=== PATIENT | female | born 1995 | race Caucasian/White ===

== ENCOUNTER 2018-10-14 05:29 | Inpatient (IN) ==
[2018-10-14] MEDS ORDERED: CeFAZolin Premix DUPLEX 2,000 MG/50 ML BAG IVPB ONE (05:43)
[2018-10-14] MEDS ORDERED: Metoclopramide 10 MG/2 ML VIAL IVP ONE (05:43)
[2018-10-14] MEDS ORDERED: Famotidine 20 MG/2 ML VIAL IVP ONE (05:43)
[2018-10-14] MEDS ORDERED: Ringers Solution, Lactated 1,000 ML IVC SCH ×3 (05:45→13:10)
[2018-10-14] MEDS ORDERED: Oxytocin 20 units/ LR 1000 mL 20 UNIT/1,000 ML BAG IVC SCH ×2 (05:45→13:10)
[2018-10-14 06:21] LABS: Basophils % 0.1 %; Eosinophils % 0.2 %; Hematocrit 36.6 % (35.3-44.9); Immature Granulocytes % 0.9 % (0-4); Lymphocytes # 1.7 K/mcL (0.6-4.6); Lymphocytes % 19.5 %; Mean Corpuscular HGB Conc 32.8 g/dL (31.6-35.5); Mean Corpuscular Hemoglobin 28.8 pg (28.0-33.3); Mean Platelet Volume 9.6 fL (9.4-12.4); Monocytes # 0.5 K/mcL (0.0-1.3); Monocytes % 5.2 %; Neutrophils # 6.4 K/mcL (1.6-8.9); Platelet Count 192 K/mcL (140-400); Red Blood Count 4.16 M/mcL (3.82-4.97); Red Cell Distribution Width 14.3 % (11.5-14.5); Segmented Neutrophils % 74.1 %
[2018-10-14 06:54] LABS: Amphetamine Screen,Urine Negative ng/mL (Cutoff=1000); Barbiturate Screen,Urine Negative ng/mL (Cutoff=200)
[2018-10-14 06:55] LABS: Benzodiazepines Screen,Urine Negative ng/mL (Cutoff=300); Cannabinoid Screen,Urine Negative ng/mL (Cutoff = 50); Cocaine Screen,Urine Negative ng/mL (Cutoff= 300); Opiate Screen,Urine Negative ng/mL (Cutoff=300); Phencyclidine Screen,Urine Negative ng/mL (Cutoff=25)
--- NOTE | 2018-10-14 07:08 | Anesthesia Evaluation PreOp ---
Date of Encounter: 10/14/18 Time of Encounter: 07:06 - Past History Planned Operation: csection Cardiac History: Denies any Significant Hx Pulmonary History: Denies Any Significant HX BEVERAGE DISTILLER History: Denies Any Significant HX Other Medical History: Denies Any Significant HX Anesthesia History: No Prior Anesthetic Complications, Past Anesthesia (previous csection (failure to progress) under GETA after failed epidural top up.) : Yes (, 39 plus 1) Alcohol Use: none Drug use: none Medications and Allergies Vit/FA 1 tab PO 07/21/15 [History] Tylenol 650 mg PRN 09/28/15 [History] Docusate [Colace] 100 mg PO BID #60 capsule 10/01/15 [Rx] Ibuprofen [Motrin] 600 mg PO Q6HR PRN #60 tablet 10/01/15 [Rx] OxyCODONE/APAP 5/325 [Percocet 5/325] 1 each PO Q4HR PRN #30 tablet 10/01/15 [Rx] Cyclobenzaprine [Flexeril] 10 mg PO TID #15 tablet 10/08/17 [Rx] Naproxen [Naprosyn] 500 mg PO BID PRN #20 tablet 10/08/17 [Rx] Allergy/AdvReac Type Severity Reaction Status Date / Time tb test AdvReac Dizziness Uncoded 06/19/18 14:59 - Meds/Allergy Pre-op Review Medications Reviewed: Yes Allergies Reviewed: Yes Beta Blockers on Current Med List: No Anesthesia Results - Labs 10/14/18 06:00 Anesthesia Exam O2 Sat Height 1.7 m Weight 107.955 kg Height: 67 Weight: 107 NPO (# of Hours): greater than 8 hours - HEENT Pupil (Motor): Pupils equal Mallampati: II Teeth: Normal Oral Opening: Greater than 3 - BEVERAGE DISTILLER LOC: Oriented BEVERAGE DISTILLER Motor: Normal RUE, Normal LUE, Normal RLE, Normal LLE, Normal Face BEVERAGE DISTILLER Sensory: Normal: RUE, LUE, RLE, LLE, Face - Cardiac Rhythm: Regular Murmur: None JVD: No Carotid Bruit: No - Pulmonary Breath Sounds: bilateral Clear Respiratory Effort: Symmetrical Anesthesia Assess/Plan ASA Score: 2 Level of consciousness: Cooperative Anesthetic Plan: General (Plan B), Spinal (plan A) Monitoring Plan: Standard Monitors Recovery Plan: PACU
--- NOTE | 2018-10-14 07:47 | OB/GYN History & Physical ---
Date of Encounter: 10/14/18 Time of Encounter: 07:45 Assessment and Plan (1) 39 weeks gestation of Current visit: Yes Status: Acute Pt at 39 weeks gestation, presents for repeat . Questions answered and consent obtained. Will proceed with . History of Present Illness Chief complaint: Here for repeat HPI: Ms. Rhodes is a 23 year old female female presents for repeat . has been uncomplicated. She reports + GFM, no vb or lof. Past Med Surg Social Fam HX - Past Medical History Source: patient, old records reviewed Medical history: no medical history Psychiatric history: no psych history - Past Surgical History Surgical History: other Additional surgical history: previous csection, LEEP - Social History Smoking Status: Never smoker Smokeless Tobacco Status: No Alcohol use: none Drug use: none - Family History Father Living Status: Still Living Hx Family Cardiac Disorders: No Hx Family Respiratory Disorders: No Hx Family Cancer: No Hx Family GI Disorders: No Hx Family Genitourinary Disorders: No Hx Family Endocrine Disorder: Yes (diabetes) Hx Family Musculoskeletal Disorders: No Hx Family Neuromuscular Disorders: No Hx Family Neurologic Disorders: No Hx Family HEENT Disorders: No Hx Family Autoimmune Disorders: No Hx Family Reproductive Disorders: No Hx Family Psychosocial Disorders: No Hx Family Medical Disorders: No Mother Adopted: No Family Member Ethnicity: Non- Living Status: Still Living Hx Family Cardiac Disorders: No Hx Family Respiratory Disorders: No Hx Family Cancer: No Hx Family GI Disorders: No Hx Family Genitourinary Disorders: No Hx Family Endocrine Disorder: No Hx Family Musculoskeletal Disorders: No Hx Family Neuromuscular Disorders: No Hx Family Neurologic Disorders: No Hx Family HEENT Disorders: No Hx Family Autoimmune Disorders: No Hx Family Reproductive Disorders: No Hx Family Psychosocial Disorders: No Hx Family Medical Disorders: No Obstetrical History - Pregnancies : 2 Medications and Allergies Vit/FA 1 tab PO 07/21/15 [History] Tylenol 650 mg PRN 09/28/15 [History] Docusate [Colace] 100 mg PO BID #60 capsule 10/01/15 [Rx] Ibuprofen [Motrin] 600 mg PO Q6HR PRN #60 tablet 10/01/15 [Rx] OxyCODONE/APAP 5/325 [Percocet 5/325] 1 each PO Q4HR PRN #30 tablet 10/01/15 [Rx] Cyclobenzaprine [Flexeril] 10 mg PO TID #15 tablet 10/08/17 [Rx] Naproxen [Naprosyn] 500 mg PO BID PRN #20 tablet 10/08/17 [Rx] Allergy/AdvReac Type Severity Reaction Status Date / Time tb test AdvReac Dizziness Uncoded 06/19/18 14:59 Exam - Constitutional Constitutional: well developed - HEENT HEENT: EOMI, PERRL - Neck Neck exam: full ROM - Lungs Respiratory exam: CTAB - Cardiovascular Cardiovascular exam: RRR - Abdomen Abdomen: Present: gravid - Extremities Extremities exam: full ROM Deep Tendon Reflex Grade: 2+ Normal Results Result Diagrams: 10/14/18 06:00 All other labs normal.
[2018-10-14] MEDS ORDERED: Bupivacaine/PF 0.75% in Dex 2 ML AMPUL INFILT ONE (08:39)
[2018-10-14] MEDS ORDERED: *HR* Morphine Sulfate/PF 10 MG/10 ML AMPUL ONE (08:52)
[2018-10-14] MEDS ORDERED: Ondansetron 4 MG/2 ML VIAL ONE ×2 (09:17→09:47)
[2018-10-14] MEDS ORDERED: *HR* Oxytocin 10 UNIT/ML VIAL IM ONE (09:17)
[2018-10-14] MEDS ORDERED: Dexamethasone 4 MG/ML VIAL ONE (09:17)
--- NOTE | 2018-10-14 09:39 | Anesthesia Procedures ---
Date of Encounter: 10/14/18 Time of Encounter: 09:08 Procedures: Anesthesia - Epidural/Spinal Patient ID/Chart reviewed: Yes Patient examined: Yes OB Eval: Gestational age: 39 OB Eval: : 2 OB Eval: Hx Para: 1 OB Eval: Contractions: Non-stressed pattern Supplemental Oxygen: None/Room Air Site Prep: Aseptic Technique, Sterile prep and drape Patient position: upright Local Anesthetic: Lidocaine 1% Amount of Local Anesthetic used: 5 Interspace Used: L4-L5 Blood: No CSF: Yes Paresthesia: No Spinal Needle Gauge: 25 Spinal Dose: Bupivicaine 0.75% 1.6ml morphine 250mcg Procedure: Intrathecal dose administered in upright position after 2 attempts unsuccessful at higher levels. L4-L5 successful attempt. Pt tolerated procedure well. Pt supine for procedure. Upon testing patient loss of sensory to t4. Vitals + FHT's: See anesthesia record. VSS and FHT stable throughout.
[2018-10-14] MEDS ORDERED: *HR* HYDROmorphone (PF) 1 MG/ML SYRINGE IVP PRN (09:46)
[2018-10-14] MEDS ORDERED: Acetaminophen IV 1,000 MG/100 ML INFUS..BTL IVPB ONE (09:46)
[2018-10-14] MEDS ORDERED: *HR* Meperidine 25 MG/ML SYRINGE IVP PRN (09:46)
[2018-10-14] MEDS ORDERED: *HR* OxyCODONE Immed Rel 5 MG TABLET PO PRN ×2 (09:46→13:10)
[2018-10-14] MEDS ORDERED: *HR* Promethazine 25 MG/ML VIAL IVP PRN (09:46)
[2018-10-14] MEDS ORDERED: Ondansetron 4 MG/2 ML VIAL IVP PRN (13:10)
[2018-10-14] MEDS ORDERED: Naloxone 0.4 MG/ML INJ IVP PRN (13:10)
[2018-10-14] MEDS ORDERED: Simethicone 80 MG TAB.CHEW PO PRN (13:10)
[2018-10-14] MEDS ORDERED: Metoclopramide 10 MG/2 ML VIAL IVP PRN (13:10)
[2018-10-14] MEDS ORDERED: Rho Immune Globulin 1,500 UNIT SYRINGE IM ONE (13:10)
[2018-10-14] MEDS ORDERED: Sennosides 8.6 MG TABLET PO PRN (13:10)
--- NOTE | 2018-10-14 15:10 | Anesthesia Evaluation Post Op ---
Date of Encounter: 10/14/18 Time of Encounter: 12:00 - Vital Signs Vital Signs: Vital Signs Respiratory Rate 16 10/14/18 13:00 Temperature 98.3 F 10/14/18 14:00 Pulse Rate 82 10/14/18 14:00 Respiratory Rate 16 10/14/18 14:00 Blood Pressure 117/70 10/14/18 14:00 O2 Sat by Pulse Oximetry 96 10/14/18 14:00 - Lungs Lungs: Clear Ascult./Percussion - Airway Airway: Non-obstructed - Cardiovascular Regular Rate - Mental Status Mental Status: Alert & Oriented, Answers Appropriately - Pain Pain Scale: 2 Pain Scale used: Numeric (1 - 10) - Nausea Vomiting Nausea Vomiting: Not Present - Hydration Hydration: NPO, Merida catheter - Discharge PostOp Status: Transfer Patient to floor
--- NOTE | 2018-10-14 18:42 | OB/GYN Procedure Note ---
Section - Date of procedure: 10/14/18 Preop diagnosis: desires repeat Post-op diagnosis: same Procedure: section, repeat low transverse Surgeon: Augustin Coyle Blood Loss: 500 Was there an assistant professor of life sciences present: Alexandrea Otr Owner Operator Truck Driver: Bala Moffett Anesthesia Type: Spinal Disposition: L&D Recovery Room Specimens: Placenta - Infant (s) A Infant Delivery Date: 10/14/18 Infant Delivery Time: 09:36 Presentation: vertex Gender: Female Viability: Viable Gram Weight: 3.87 kg at 1 minute: 8 at 5 minutes: 9 Specimens collected: cord blood Placenta: spontaneous Cord: 3 umbilical vessels - Narrative Narrative: Patient was taken operating room where spinal anesthesia was administered. She is prepped draped in usual sterile fashion bladder drained clear urine with Merida catheter. Scalpel was used to make Pfannenstiel skin incision this was sharply take down the rectus fascia. Fascial incision was extended incised the midline fascial incision was extended bilaterally plain was developed and rectus muscle rectus fascia superiorly and distally rectus muscles were run midline peritoneum was entered sharply. Bladder blade was placed and bladder flap was dropped lower uterine segment. Scalpel was used to make a low transverse uterine incision. This was extended bluntly bilaterally. Membranes were ruptured clear fluid and infant was delivered from vertex presentation. Cord was clamped and cut and was taken nurse personnel who were in attendance. Placenta was delivered manually without difficulty. Uterus was closed with 0 Vicryl running lock stitch. There was a [id number] stitches placed on left side obtain hemostasis. Again irrigation was performed hemostasis was ensured. Fascia was closed 0 Vicryl running manner. After closed the fascia again irrigation was performed hemostasis was assured. Skin edges reapproximated with 4-0 Vicryl. All sponge and counts are correct patient taken recovery in good condition.
[2018-10-14] MEDS: Ibuprofen 600 MG TABLET PO PRN (21:16)
[2018-10-15] MEDS: *HR* OxyCODONE/APAP 5/325 TABLET PO PRN ×2 (06:05→16:57)
[2018-10-15 06:52] LABS: Eosinophils % 0.2 %; Hematocrit 29.1 % (35.3-44.9); Immature Granulocytes % 0.5 % (0-4); Lymphocytes # 0.9 K/mcL (0.6-4.6); Mean Corpuscular HGB Conc 32.3 g/dL (31.6-35.5); Mean Corpuscular Hemoglobin 28.6 pg (28.0-33.3); Mean Corpuscular Volume 88.4 fL (83.0-100.0); Mean Platelet Volume 9.2 fL (9.4-12.4); Monocytes # 0.6 K/mcL (0.0-1.3); Platelet Count 153 K/mcL (140-400); Red Blood Count 3.29 M/mcL (3.82-4.97); Red Cell Distribution Width 14.4 % (11.5-14.5); Segmented Neutrophils % 84.3 %
[2018-10-15 07:02] LABS: Hemoglobin 9.4 g/dL (11.5-15.4)
[2018-10-15] MEDS: Ibuprofen 600 MG TABLET PO PRN ×2 (09:34→20:28)
[2018-10-15] MEDS: Prenatal Vit/FA 1 EACH TABLET PO SCH (09:35)
--- NOTE | 2018-10-15 10:38 | OB/GYN Progress Note ---
Date of Encounter: 10/15/18 Time of Encounter: 10:35 - Assessment and Plan (1) Delivered by section Current Visit: No Status: Acute Pt meeting POD1 milestones. Plan for discharge home POD#2. (2) Breast feeding status of mother Current Visit: Yes Status: Acute Subjective - Subjective Interval history: Pt reports some incisional pain with movement. No other complaints. She is tolerating a regular diet and passing flatus. Tired but otherwise good mood. Patient reports: appetite normal, voiding normally, pain well controlled, ambulating normally Objective - Vital Signs Latest vital signs: Vital Signs Temp Pulse Pulse Resp BP Pulse Ox 10/15/18 09:26 16 10/15/18 08:04 98.2 F 110 14 110/63 96 10/15/18 05:45 98.4 F 98 16 107/61 97 10/15/18 01:00 98.2 F 93 16 109/65 99 10/14/18 21:10 80 10/14/18 19:30 98.6 F 97 16 107/67 96 10/14/18 16:42 98.3 F 91 16 117/71 96 10/14/18 16:30 16 10/14/18 15:11 98.6 F 92 14 111/69 95 10/14/18 15:00 98.6 F 92 16 111/69 95 10/14/18 14:00 98.3 F 82 16 117/70 96 10/14/18 13:30 98.3 F 75 16 117/69 95 10/14/18 13:01 97.8 F 69 16 123/83 98 10/14/18 13:00 16 Intake and Output 10/14/18 10/15/18 10/15/18 23:59 07:59 15:59 Intake Total 200 / 200 Output Total 600 / 600 1300 / 1300 300 / 300 Balance -600 / -600 -1300 / -1300 -100 / -100 Intake: Oral 200 / 200 Output: Urine 600 / 600 300 / 300 Catheter 1300 / 1300 Other: Meal Breakfast Percent of Meal Consumed 40% Weight 102.92 kg Patient Weight 10/15/18 23:59 Weight 102.92 kg - Exam Lungs: bilateral: normal Chest: Normal S1, Normal S2 Extremities: Present: normal, edema (1+ bilaterally) Abdomen: Present: soft Incision: Present: dressed (dressing dry and intact) Uterus: Present: firm Fundal Height: 1 (U/1) - Labs Labs: Laboratory Results - last 24 hr 10/14/18 10/15/18 10:30 06:32 WBC 9.5 RBC 3.29 L Hgb 9.4 L D Hct 29.1 L MCV 88.4 MCH 28.6 MCHC 32.3 RDW 14.4 Plt Count 153 MPV 9.2 L Immature Gran % 0.5 Seg Neutrophils % 84.3 Lymphocytes % 9.0 Monocytes % 6.0 Eosinophils % 0.2 Basophils % 0.0 Neutrophils # 8.0 Lymphocytes # 0.9 Monocytes # 0.6 Eosinophils # 0.0 Basophils # 0.0 Baby's Blood Type O RH NEGATIVE Mother's Blood Type O RH NEGATIVE Rhogam Indicated NO
[2018-10-16] MEDS: Ibuprofen 600 MG TABLET PO PRN (06:43)
[2018-10-16 07:58] VITALS: BP 114/71
--- NOTE | 2018-10-16 08:36 | Discharge Summary ---
Date of Encounter: 10/17/18 Time of Encounter: 09:04 - Discharge Diagnosis (1) Status post repeat low transverse section Priority: Secondary Status: Acute Comments: Status post day 2 repeat low transverse Meeting day 2 milestones Pain well controlled Ambulating without dizziness Voiding and passing flatus Lochia light, discussed post bleeding Mood is appropriate control: is considering IUD to be further discussed at follow up Healthy female weight 3.87 kg with 8/9 , support as needed, breast pump script given Well to discharge Follow up in 2 weeks (2) 39 weeks gestation of Priority: Primary Status: Acute Comments: Now Delivered by repeat LT at 39 weeks 1 day - Discharge Medications Prescriptions: RX: OxyCODONE/APAP 5/325 [Percocet 5/325 MG] 1 each PO Q4HR PRN 5 Days #20 tablet PRN Reason: Moderate pain 4-6 RX: Ibuprofen [Motrin] 600 mg PO Q6HR PRN #30 tablet PRN Reason: Cramping RX: Breast Pump [BREAST PUMP] 1 each .ROUTE AD #1 each RX: Docusate [Colace] 100 mg PO BID #30 capsule RX: Ferrous Sulfate 325 mg PO DAILY #90 tablet Home Medications: Vit/FA 1 tab PO 07/21/15 [History] RX: Ibuprofen [Motrin] 600 mg PO Q6HR PRN #60 tablet 10/01/15 [Rx] RX: Cyclobenzaprine [Flexeril] 10 mg PO TID #15 tablet 10/08/17 [Rx] RX: Naproxen [Naprosyn] 500 mg PO BID PRN #20 tablet 10/08/17 [Rx] RX: Breast Pump [BREAST PUMP] 1 each .ROUTE AD #1 each 10/16/18 [Rx] RX: Docusate [Colace] 100 mg PO BID #30 capsule 10/16/18 [Rx] RX: Ferrous Sulfate 325 mg PO DAILY #90 tablet 10/16/18 [Rx] RX: Ibuprofen [Motrin] 600 mg PO Q6HR PRN #30 tablet 10/16/18 [Rx] RX: OxyCODONE/APAP 5/325 [Percocet 5/325 MG] 1 each PO Q4HR PRN 5 Days #20 tablet 10/16/18 [Rx] Allergies/Adverse Reactions: Allergy/AdvReac Type Severity Reaction Status Date / Time tb test AdvReac Dizziness Uncoded 06/19/18 14:59 Data Procedures and tests throughout hospitalization: Laboratory Tests 10/14/18 10/14/18 10/14/18 06:00 06:32 10:30 WBC 8.6 RBC 4.16 Hgb 12.0 Hct 36.6 MCV 88.0 MCH 28.8 MCHC 32.8 RDW 14.3 Plt Count 192 MPV 9.6 Immature Gran % 0.9 Seg Neutrophils % 74.1 Lymphocytes % 19.5 Monocytes % 5.2 Eosinophils % 0.2 Basophils % 0.1 Neutrophils # 6.4 Lymphocytes # 1.7 Monocytes # 0.5 Eosinophils # 0.0 Basophils # 0.0 Urine Opiates Screen Negative Ur Barbiturates Screen Negative Ur Phencyclidine Scrn Negative Ur Amphetamines Screen Negative U Benzodiazepines Scrn Negative Urine Cocaine Screen Negative U Marijuana (THC) Screen Negative Ur Drug Screen Interp See Below Baby's Blood Type O RH NEGATIVE Mother's Blood Type O RH NEGATIVE Rhogam Indicated NO 10/15/18 06:32 WBC 9.5 RBC 3.29 L Hgb 9.4 L D Hct 29.1 L MCV 88.4 MCH 28.6 MCHC 32.3 RDW 14.4 Plt Count 153 MPV 9.2 L Immature Gran % 0.5 Seg Neutrophils % 84.3 Lymphocytes % 9.0 Monocytes % 6.0 Eosinophils % 0.2 Basophils % 0.0 Neutrophils # 8.0 Lymphocytes # 0.9 Monocytes # 0.6 Eosinophils # 0.0 Basophils # 0.0 Urine Opiates Screen Ur Barbiturates Screen Ur Phencyclidine Scrn Ur Amphetamines Screen U Benzodiazepines Scrn Urine Cocaine Screen U Marijuana (THC) Screen Ur Drug Screen Interp Baby's Blood Type Mother's Blood Type Rhogam Indicated Date of admission: 10/14/18 05:29 Primary care physician: Vikram Cartagena Jr, MD Discharging clinician: Senait Corrales Anticipated date of discharge: 10/16/18 - Patient Status Disposition: Home, Self-Care Functional capacity at discharge: independent ambulation Overall status at discharge: patient is back to baseline - Discharge Instructions Follow Up With: Vikram Cartagena Jr, MD [Primary Care Provider] - - Diet and Activity Activity: resume usual activities as tolerated Diet: advance to your usual diet Hospital Course Reason for admission: section Delivery: section Episiotomy: none Laceration: none Other procedures: none complications: none Discharge diagnosis: IUP at term delivered [place] baby: female Hospital course: - Date of procedure: 10/14/18 Preop diagnosis: desires repeat Post-op diagnosis: same Procedure: section, repeat low transverse Surgeon: Augustin Coyle Blood Loss: 500 Was there an internet marketing assistant present: No Apprentice Machinist Outside: Bala Moffett Anesthesia Type: Spinal Disposition: L&D Recovery Room Specimens: Placenta - Infant (s) Infant A Delivery Date: 10/14/18 Delivery Time: 09:36 Presentation: vertex Gender: Female Viability: Viable Gram Weight: 3.87 kg at 1 minute: 8 at 5 minutes: 9 Specimens collected: cord blood Placenta: spontaneous Cord: 3 umbilical vessels Time Attestation: Total time spent providing and/or coordinating discharge services: Time Spent: Greater than 30 minutes - VTE Documentation of Mechanical Device: Intermittent pneumatic compression device - Attending Attestation I have seen and assessed this patient and agree with resident assessment. Martin Bowen CNM Exam - Constitutional Vitals: Temp Pulse Resp BP Pulse Ox 98.1 F 90 16 114/71 98 10/16/18 07:57 10/16/18 07:57 10/16/18 07:57 10/16/18 07:57 10/15/18 20:25 General appearance IM: A&O X 3, pleasant, no acute distress - Respiratory Respiratory exam: Present: CTAB. Absent: rales, rhonchi, wheezes - Cardiovascular Cardiovascular exam IM: Present: RRR, +S1, +S2 - GI/Abdominal GI/Abdominal exam IM: normal bowel sounds, soft Incision: normal, dry, intact - External exam: normal external exam Uterine Tone: Firm Uterus Position: 2 Fingers Below Umbilicus - Extremities Exam Extremities exam IM: Present: normal inspection, pedal edema, radial pulses palpable and symmetrical. Absent: calf tenderness - Neurological Exam Neurological exam: CN II-XII intact, oriented X3 - Psychiatric Additional comments: mood is appropriate
[2018-10-16] MEDS: Prenatal Vit/FA 1 EACH TABLET PO SCH (09:26)
[2018-10-16] MEDS ORDERED: Lanolin 7 G OINT...G. TP PRN (10:53)
== END 2018-10-16 11:40 | disposition home or self-care (01) | DRG 788 ==
LOC: 1NENULAB 05:29 → 1NENUOBS 13:07
PROVIDERS: ADMIT Obstetrics & Gynecology; ATTEND Obstetrics & Gynecology

== ENCOUNTER 2022-03-03 04:57 | Inpatient (IN) ==
[2022-03-03] MEDS ORDERED: Ringers Solution, Lactated 1,000 ML IVC ONE (04:58)
[2022-03-03] MEDS ORDERED: Famotidine 20 MG/2 ML VIAL IVP PRN (04:58)
[2022-03-03] MEDS ORDERED: Azithromycin 500 MG in 0.9 % Sodium Chloride 250 ML IVPB PRN (04:58)
[2022-03-03] MEDS ORDERED: Metoclopramide 10 MG/2 ML VIAL IVP PRN ×2 (04:58→11:59)
[2022-03-03] MEDS ORDERED: Naloxone 0.4 MG/ML INJ IVP PRN (04:58)
[2022-03-03] MEDS ORDERED: Ringers Solution, Lactated 1,000 ML IVC SCH ×2 (05:00→11:59)
[2022-03-03 06:07] LABS: Basophils % 0.2 %; Eosinophils # 0.1 K/mcL (0.0-0.6); Eosinophils % 1.2 %; Hematocrit 37.8 % (35.3-44.9); Hemoglobin 12.4 g/dL (11.5-15.4); Immature Granulocytes % 0.9 % (0-4); Lymphocytes # 2.1 K/mcL (0.6-4.6); Lymphocytes % 25.9 %; Mean Corpuscular HGB Conc 32.8 g/dL (31.6-35.5); Mean Corpuscular Hemoglobin 29.7 pg (28.0-33.3); Mean Corpuscular Volume 90.6 fL (83.0-100.0); Mean Platelet Volume 10.1 fL (9.4-12.4); Monocytes # 0.5 K/mcL (0.0-1.3); Monocytes % 5.6 %; Neutrophils # 5.4 K/mcL (1.6-8.9); Platelet Count 203 K/mcL (140-400); Red Blood Count 4.17 M/mcL (3.82-4.97); Red Cell Distribution Width 13.8 % (11.5-14.5); Segmented Neutrophils % 66.2 %; White Blood Count 8.2 K/mcL (4.3-11.1)
[2022-03-03 06:30] LABS: Alanine Aminotransferase 11 Units/L (7-52); Aspartate Amino Transferase 12 Units/L (13-39); BUN/Creatinine Ratio 18 (6-26); Blood Urea Nitrogen 11 mg/dL (6-20); Lactate Dehydrogenase 159 Units/L (140-271); Uric Acid 6.7 mg/dL (2.3-7.6); eGFR For African Americans > 60 (> 60); eGFR For Non-African Americans > 60 (> 60)
[2022-03-03 06:46] LABS: Influenza A PCR Negative (Negative); Influenza B PCR Negative (Negative); Resp. Syncytial Virus PCR Negative (Negative)
[2022-03-03 06:51] LABS: SARS-CoV-2 by PCR (In House) Negative (Negative)
[2022-03-03] MEDS ORDERED: *HR* Morphine Sulfate/PF 10 MG/10 ML AMPUL ONE (07:27)
[2022-03-03] MEDS ORDERED: Ondansetron 4 MG/2 ML VIAL ONE (07:27)
[2022-03-03] MEDS ORDERED: *HR* FentaNYL (PF) 100 MCG/2 ML VIAL ONE (07:27)
[2022-03-03] MEDS ORDERED: CeFAZolin Syr 3,000MG/30 ML 3,000 MG/30 ML SYRINGE IVPB ONE (07:41)
[2022-03-03] MEDS ORDERED: Oxytocin 30 UNIT/503 ML BAG IVC ONE (07:48)
[2022-03-03] MEDS ORDERED: Acetaminophen IV 1,000 MG/100 ML BAG IVPB ONE (08:13)
[2022-03-03] MEDS ORDERED: Ketorolac 30 MG/ML VIAL ONE (08:34)
[2022-03-03 10:16] LABS: Amphetamine Screen,Urine Negative ng/mL (Cutoff=1000); Barbiturate Screen,Urine Negative ng/mL (Cutoff=200); Benzodiazepines Screen,Urine Negative ng/mL (Cutoff=200); Cannabinoid Screen,Urine Negative ng/mL (Cutoff = 50); Cocaine Screen,Urine Negative ng/mL (Cutoff= 300); Opiate Screen,Urine Negative ng/mL (Cutoff=300); Phencyclidine Screen,Urine Negative ng/mL (Cutoff=25)
[2022-03-03] MEDS ORDERED: Simethicone 80 MG TAB.CHEW PO PRN (11:59)
[2022-03-03] MEDS ORDERED: Rho Immune Globulin 1,500 UNIT SYRINGE IM ONE (11:59)
[2022-03-03] MEDS ORDERED: *HR* OxyCODONE Immed Rel 5 MG TABLET PO PRN (11:59)
[2022-03-03] MEDS ORDERED: Ondansetron 4 MG/2 ML VIAL IVP PRN (11:59)
[2022-03-03] MEDS ORDERED: OXYTOCIN/RINGERS LACTATE 10 UNIT/166.6 ML BAG IVC ONE ×3 (11:59→12:30)
[2022-03-03] MEDS: Acetaminophen 325 MG TABLET PO SCH (20:18)
[2022-03-03] MEDS: Ibuprofen 600 MG TABLET PO SCH (21:42)
[2022-03-03] MEDS: *HR* Enoxaparin 60 MG/0.6 ML SYRINGE SQ SCH (22:33)
[2022-03-04] MEDS: Ibuprofen 600 MG TABLET PO SCH ×3 (00:29→13:26)
[2022-03-04] MEDS: Acetaminophen 325 MG TABLET PO SCH ×2 (03:37→13:27)
[2022-03-04 04:15] LABS: Basophils % 0.1 %; Eosinophils # 0.1 K/mcL (0.0-0.6); Eosinophils % 0.6 %; Hematocrit 30.5 % (35.3-44.9); Immature Granulocytes % 0.7 % (0-4); Lymphocytes # 1.6 K/mcL (0.6-4.6); Lymphocytes % 19.8 %; Mean Corpuscular HGB Conc 33.1 g/dL (31.6-35.5); Mean Corpuscular Hemoglobin 30.6 pg (28.0-33.3); Mean Corpuscular Volume 92.4 fL (83.0-100.0); Mean Platelet Volume 9.4 fL (9.4-12.4); Monocytes # 0.4 K/mcL (0.0-1.3); Monocytes % 4.4 %; Platelet Count 155 K/mcL (140-400); Red Cell Distribution Width 14.1 % (11.5-14.5); Segmented Neutrophils % 74.4 %; White Blood Count 8.1 K/mcL (4.3-11.1)
[2022-03-04 04:16] LABS: Hemoglobin 10.1 g/dL (11.5-15.4)
[2022-03-04 07:14] VITALS: BP 129/84; PULSE 82; TEMP 98.2; O2SAT 95
[2022-03-04] MEDS: *HR* Enoxaparin 60 MG/0.6 ML SYRINGE SQ SCH (07:59)
[2022-03-04] MEDS ORDERED: Prenatal Vit/FA 1 EACH TABLET PO SCH (09:00)
== END 2022-03-04 15:14 | disposition home or self-care (01) | DRG 540 ==
LOC: 1NENULAB 04:57 → 1NENUOBS 11:28
PROVIDERS: ADMIT Obstetrics & Gynecology; ATTEND Obstetrics & Gynecology